=== PATIENT | female | born 1975 | race Caucasian/White ===

== ENCOUNTER 2016-06-19 19:05 | Emergency (ER) | payer BC | END 2016-06-19 19:44 | disposition home or self-care (01) | LOC: ER 19:05 | DX: T63.301A Toxic effect of unspecified spider venom, accidental (unintentional), initial encounter (principal); G43.909 Migraine, unspecified, not intractable, without status migrainosus; E03.9 Hypothyroidism, unspecified; Z98.51 Tubal ligation status; Z23 Encounter for immunization | CPT/HCPCS: 90471 ==